=== PATIENT | female | born 1995 | race Caucasian/White ===

== ENCOUNTER 2018-01-03 19:14 | Inpatient (IN) | payer OTHER ==
[2018-01-03] MEDS ORDERED: DEXTROSE 5%-LACTATED RINGERS 500 ML IV SCH (20:20)
[2018-01-03 21:11] LABS: BASO % 0.5 % (0-2.0); EOS % 0.1 % (0-4.5); HEMATOCRIT 32.5 % (32.4-45.2); HEMOGLOBIN 10.9 GM/dL (10.7-15.3); LYMPH % 11.1 % (8-40); MCH 28.7 pg (25.7-33.7); MCHC 33.6 g/dl (32.0-36.0); MEAN CELL VOLUME 85.4 fl (80-96); MEAN PLT VOLUME 9.8 fl (7.5-11.1); MONO % 4.2 % (3.8-10.2); NEUT % 84.1 % (42.8-82.8); PLATELET COUNT 230 K/MM3 (134-434); RDW 13.7 % (11.6-15.6); WHITE BLOOD COUNT 13.4 K/mm3 (4.0-10.0)
[2018-01-03 21:19] LABS: URINE APPEARANCE SLCLOUDY; URINE BILIRUBIN NEGATIVE (<2.0 mg/dL); URINE COLOR YELLOW; URINE GLUCOSE (UA) NEGATIVE (NEGATIVE); URINE KETONE 2+ (NEGATIVE); URINE NITRITE NEGATIVE (NEGATIVE); URINE PROTEIN NEGATIVE (NEGATIVE); URINE UROBILINOGEN NEGATIVE mg/dL (0.2-1.0)
[2018-01-03] MEDS ORDERED: DEXTROSE 5%-LACTATED RINGERS 1,000 ML IV SCH (21:20)
[2018-01-03 21:21] LABS: URINE LEUK ESTERASE 1+ (NEGATIVE)
[2018-01-03 21:23] LABS: EPI CELLS FEW /HPF (FEW); URINE MUCUS RARE
[2018-01-03 21:33] LABS: INR 0.94 (0.83-1.09); PROTHROMBIN TIME (PATIENT) 10.6 SEC (9.7-13.0)
[2018-01-03 21:38] LABS: ANION GAP 13 (8-16); BLOOD UREA NITROGEN 3 mg/dL (7-18); CALCIUM 8.6 mg/dL (8.5-10.1); CHLORIDE 103 mmol/L (98-107); CO2 23 mmol/L (21-32); CREATININE 0.4 mg/dL (0.55-1.02); GLUCOSE,RANDOM 67 mg/dL (74-106); POTASSIUM 3.9 mmol/L (3.5-5.1); SODIUM 139 mmol/L (136-145)
[2018-01-03] MEDS: DEXTROSE 5%-LACTATED RINGERS 1,000 ML IV SCH (22:45)
[2018-01-03] MEDS ORDERED: AMPICILLIN - 2 GM in SODIUM CHLORIDE 100 ML IVPB ONE (22:45)
[2018-01-03] MEDS ORDERED: AMPICILLIN SODIUM 2 GM VIAL ONE (22:49)
[2018-01-03 23:43] VITALS: BMI 26.9
[2018-01-03] MEDS ORDERED: PROMETHAZINE HCL 25 MG/1 ML VIAL ONE (23:46)
[2018-01-03] MEDS ORDERED: BUTORPHANOL TARTRATE 1 MG/ML VIAL ONE ×2 (23:46)
[2018-01-04] MEDS ORDERED: PROMETHAZINE HCL 25 MG/1 ML VIAL IVPUSH ONE (01:00)
[2018-01-04] MEDS ORDERED: BUTORPHANOL TARTRATE 1 MG/ML VIAL IVPUSH ONE (01:00)
[2018-01-04] MEDS ORDERED: AMPICILLIN - 1 GM in SODIUM CHLORIDE 100 ML IVPB SCH ×2 (02:45→09:00)
[2018-01-04] MEDS ORDERED: AMPICILLIN SODIUM 1 GM VIAL ONE (03:13)
[2018-01-04] MEDS ORDERED: FENTANYL/BUPIVACAINE/NS/PF - PCEA - 50 ML DISP.SYRIN EP ONE (04:10)
[2018-01-04] MEDS ORDERED: NALOXONE HCL 0.4 MG/ML VIAL IVPUSH PRN (04:16)
[2018-01-04] MEDS ORDERED: LIDO 2%/EPI 1:200000 PRESRVFRE (20 ML SDVIAL) ONE ×3 (04:19→07:48)
[2018-01-04] MEDS: FENTANYL/BUPIVACAINE/NS/PF - PCEA - 50 ML DISP.SYRIN EP SCH (04:35)
[2018-01-04] MEDS ORDERED: ceFAZolin SODIUM 1 GM VIAL ONE ×3 (08:04→23:55)
[2018-01-04] MEDS ORDERED: SODIUM CHLORIDE 0.9% P/F 10 ML VIAL IJ ONE (08:04)
[2018-01-04] MEDS ORDERED: morphine SULFATE/Preservative Free 0.5 MG/ML (1cc Syringe) ONE ×4 (08:08)
[2018-01-04] MEDS ORDERED: KETOROLAC TROMETHAMINE 30 MG/1 ML VIAL ONE (08:11)
[2018-01-04] MEDS ORDERED: OXYTOCIN 20 UNITS in 0.9% NS 20 UNIT/1,000 ML INFUS.BAG IV ONE (08:28)
[2018-01-04] MEDS ORDERED: GENTAMICIN SO4 80 MG/2 ML VIAL ONE (08:28)
--- NOTE | 2018-01-04 08:30 | SURG ---
Surgery Deicer Repairer Pneumatic Note Deicer Repairer Pneumatic: Annetta Muñoz PA-C Date of Service: 01/04/18 Diagnosis: Failure to progress. Tachycardia. Fever. Nonreassuring tracing Procedure: Primary Low Transverse Section I was present for the entirety of the operative procedure. For further detail, please refer to operative report. Visit type - Case Type Case Type: ED Admission - Emergency Emergency Visit: Yes ED Registration Date: 01/03/18 Care time: The patient presented to the Emergency Department on the above date and was hospitalized for further evaluation of their emergent condition. - New patient This patient is new to me today: Yes Date on this admission: 01/04/18
[2018-01-04] MEDS ORDERED: CITRIC ACID/SODIUM CITRATE 30 ML UNIT-DOSE CUP PO ONE (08:46)
[2018-01-04] MEDS ORDERED: METHYLERGONOVINE MALEATE 0.2 MG/1 ML AMP IM PRN (08:47)
--- NOTE | 2018-01-04 08:54 | HP ---
Past Medical History - Admission Chief Complaint: Fever. labor History of Present Illness: 22 yo EDC 01/19 18 EGA 37.6 week with c/o of fever and labor History Source: Patient - Past Medical History ...: 1 ...Para: 0 ...Term: 0 ...: 0 ...Spon : 0 ...Induced : 0 ...Multiple Gestation: 0 ...LMP: 04/08/17 ... Weeks Gestation by Dates: 38.4 ...EDC by Dates: 01/13/18 ...EDC by Sono: 01/19/18 - Past Surgical History Past Surgical History: Yes: None Hx Myomectomy: No Hx Transabdominal Cerclage: No - Smoking History Smoking history: Never smoked Have you smoked in the past 12 months: No Aproximately how many cigarettes per day: 0 - Alcohol/Substance Use Hx Alcohol Use: No History of Substance Use: reports: None - Social History Usual Living Arrangement: Yes: With Spouse History of Recent Travel: No Home Medications - Allergies Allergies/Adverse Reactions: Allergies Allergy/AdvReac Type Severity Reaction Status Date / Time No Known Allergies Allergy Verified 01/22/12 12:37 - Home Medications Home Medications: Ambulatory Orders Mupirocin Cream [Bactroban] 1 applic TP BID #1 tube 01/22/12 No Home Medications 0 dose .ROUTE UTDICT 01/22/12 Sulfamethoxazole/Trimethoprim [Bactrim *Ds*] 1 tab PO BID #20 tablet 01/22/12 Review of Systems - Review of Systems Constitutional: reports: Fever Eyes: reports: No Symptoms HENT: reports: No Symptoms Neck: reports: No Symptoms Cardiovascular: reports: No Symptoms Respiratory: reports: No Symptoms Gastrointestinal: reports: No Symptoms Genitourinary: reports: No Symptoms Breasts: reports: No Symptoms Reported Musculoskeletal: reports: No Symptoms Integumentary: reports: No Symptoms Neurological: reports: No Symptoms Endocrine: reports: No Symptoms Hematology/Lymphatic: reports: No Symptoms Psychiatric: reports: No Symptoms Physical Exam - Maternity Vital Signs: Vital Signs Temperature 99.9 F H 01/04/18 06:45 Pulse Rate 101 H 01/04/18 06:45 Respiratory Rate 20 01/04/18 06:45 Blood Pressure 110/62 01/04/18 06:45 O2 Sat by Pulse Oximetry (%) 96 01/04/18 06:45 Constitutional: Yes: Well Nourished, Anxious Neck: Yes: WNL Cardiovascular: Yes: WNL, Tachycardia Lungs: Clear to auscultation Breast(s): Yes: WNL - Abdominal Exam/OB Fundal Height: 40 Number of Fetuses: Single Presentation: Vertex Contractions: Yes Category: II Decelerations: Late - Vaginal Exam/OB Dilatation (cm): 4-5 cm Effacement (%): 90 Presentation: Vertex/Position Station: +1 - Physical Exam Musculoskeletal: Yes: WNL Extremities: Yes: WNL Edema: No Integumentary: Yes: WNL Psychiatric: Yes: WNL, Alert, Oriented - Labs Lab Results: CBC, BMP 01/03/18 20:30 01/03/18 20:30 Problem List - Problems (1) tachycardia during labor Code(s): KQO9377 - (2) Non-reassuring electronic monitoring tracing Code(s): O76 - ABNLT IN HEART RATE AND RHYTHM COMP LABOR AND DELIVERY (3) Failure to progress in labor Code(s): O62.2 - OTHER UTERINE INERTIA Assessment/Plan IUP at 37 week tachycardia failure to progress fever non reassurring tracing due to late decels plan section notify anesthesia notify neonatology parents and patient agree
[2018-01-04] MEDS ORDERED: OXYTOCIN 20 UNITS in 0.9% NS 20 UNIT/1,000 ML INFUS.BAG IV SCH (09:00)
[2018-01-04] MEDS ORDERED: TUBERCULIN PPD 5 TU/0.1ML SYRINGE (IN PATIENT USE ONLY) ID ONE (09:00)
--- NOTE | 2018-01-04 09:01 | OP ---
Operative Note - Note: Operative Date: 01/04/18 Pre-Operative Diagnosis: Failure to progress. Tachycardia. Fever. Nonreassuring tracing Operation: Primary Low Transverse Section Findings: Live infant delivered in OP position Post-Operative Diagnosis: Same as Pre-op Surgeon: Radha Dubon Supervisor [employer] Reservations: Annetta Muñoz Anesthesia: Spinal Estimated Blood Loss (mls): 500 Operative Report Dictated: Yes
[2018-01-04 09:09] LABS: VENOUS PC02 50.4 mmHg (38-52); VENOUS PH 7.34 (7.32-7.42); VENOUS PO2 22.6 mmHg (28-48)
[2018-01-04 09:10] LABS: ARTERIAL BLOOD GAS PCO2 55.3 mmHg (35-45); ARTERIAL BLOOD GAS pH 7.31 (7.35-7.45)
[2018-01-04 09:11] LABS: ARTERIAL BLD GAS O2 SATURATION 40.4 % (90-98.9); ARTERIAL BLOOD GAS BASE EXCESS -0.3 meq/l (-2-2)
[2018-01-04] MEDS ORDERED: ONDANSETRON 4 MG/2 ML VIAL IVPUSH PRN (09:12)
[2018-01-04 09:14] LABS: ARTERIAL BLOOD GAS PO2 21.8 mmHg (80-100)
[2018-01-04] MEDS: FERROUS SO4 325 MG TABLET (FP) PO SCH ×2 (10:06→21:23)
[2018-01-04] MEDS: PRENATAL VITAMINS W/ FOLIC ACID TABLET (FP) PO SCH (10:07)
[2018-01-04] MEDS: IBUPROFEN 800 MG/8 ML IJ IVPB PRN ×2 (10:16→18:37)
--- NOTE | 2018-01-04 10:51 | OP ---
DATE OF OPERATION: 01/04/2018 PREOPERATIVE DIAGNOSES: Failure to progress, tachycardia, fever, and nonreassuring tracing. OPERATION: Primary low-transverse section. PREOPERATIVE DIAGNOSIS: Live male infant in occiput posterior position. SURGEON: Shawn Dubon MD SHIPPING AND RECEIVING SUPERVISOR: Annetta Muñoz. ANESTHESIOLOGIST: Ashutosh Baldwin MD ANESTHESIA: Spinal. ESTIMATED BLOOD LOSS: 500 mL. PROCEDURE: The patient was taken to the operating room, placed in supine position, prepped and draped in usual sterile fashion. A timeout was performed in accordance with hospital regulation. A scalpel was then used to make a low transverse uterine incision. Cautery was then used to go through layers of abdominal wall to the level of the fascia. Fascia was cut in the midline and cautery was then used to open the fascia in smiling fashion. Kochers were then used to bluntly and sharply dissect the rectus muscle. The fascia was split in the midline. Peritoneal cavity was then entered and carried upward and downward. Bladder retractor was then placed. Vesicouterine reflection was then entered, and bladder was bluntly dissected out of the operative field. A scalpel was then used to make a low transverse uterine incision. The incision was carried upward using the bandage scissors. A live male infant was delivered in OP position. Nose and mouth suction performed. Shoulders were delivered without difficulty. Cord was clamped and cut. DeLee cord clamping was done, cord pH obtained, and was handed to electric powerline examiner. Cord pH obtained and cord blood sampling was done. Placenta was manually extracted from the uterus. The uterus was exteriorized and cleaned with clean lap pads. Uterine incision was then closed using 0 Biosyn suture, first layer continuous interlocking, second layer imbricating the first layer. Tubes and ovaries were noted to be normal. Uterus interiorized. Abdominal cavity cleaned with clean lap pad. Peritoneum closed using 0 Biosyn suture. Muscles approximated in midline using 0 Biosyn suture. Fascia was then closed using 0 Vicryl suture in 2 parts. Subcutaneous was closed using 0 Biosyn sutures. Skin was then closed using 3-0 Vicryl in subcuticular fashion. Wound was washed and dressed. Patient tolerated the procedure well. Estimated blood loss was 500 mL. SHAWN DUBON M.D. ISAIAH/[id number]
[2018-01-04] MEDS ORDERED: DEXTROSE 5%-WATER - 50 ML IVPB ONE ×2 (16:54→23:55)
[2018-01-04] MEDS: CEFAZOLIN 1 GM in DEXTROSE 5%-WATER - 50 ML IVPB SCH (16:58)
[2018-01-04] MEDS: DEXTROSE 5%-LACTATED RINGERS 1,000 ML IV SCH (22:45)
[2018-01-05] MEDS: CEFAZOLIN 1 GM in DEXTROSE 5%-WATER - 50 ML IVPB SCH ×2 (00:08→07:41)
[2018-01-05] MEDS: IBUPROFEN 800 MG/8 ML IJ IVPB PRN (01:07)
--- NOTE | 2018-01-05 07:09 | PN ---
Progress Note (SOAP) - Subjective Chief Complaint: Pt doing well no fever - Current Medications Current Medications: Active Medications Acetaminophen (Tylenol -) 650 mg PO Q4H PRN PRN Reason: FEVER Bisacodyl (Dulcolax Suppository -) 10 mg RC PRN PRN PRN Reason: CONSTIPATION Diphenhydramine HCl (Benadryl Injection -) 25 mg IVPUSH Q4H PRN PRN Reason: Pruritis Fentanyl/Bupivacaine/Sodium Chlor (Bupivicaine 0.125%/Fentanyl 2mcg/Ml Pcea) 50 ml EP ASDIR [facility]; Protocol Last Admin: 01/04/18 04:35 Dose: 50 ml Ferrous Sulfate (Feosol -) 325 mg PO BID [facility] Last Admin: 01/04/18 21:23 Dose: Not Given Dextrose/Lactated Ringer's (D5-Lr -) 1,000 mls @ 125 mls/hr IV ASDIR [facility] Last Admin: 01/04/18 22:45 Dose: Not Given Cefazolin Sodium 1 gm/ (Dextrose) 50 mls @ 100 mls/hr IVPB Q8H [facility] Stop: 01/05/18 15:59 Last Admin: 01/05/18 00:08 Dose: 100 mls/hr Oxytocin/Sodium Chloride (Normal Saline+20 Units Oxytocin -) 20 unit in 1,000 mls @ 125 mls/hr IV ASDIR [facility] Last Admin: 01/04/18 09:00 Dose: 125 mls/hr Ibuprofen (Caldolor Injection -) 800 mg IVPB Q8H PRN PRN Reason: FEVER Last Admin: 01/05/18 01:07 Dose: 800 mg Ibuprofen (Motrin -) 600 mg PO Q4H PRN PRN Reason: PAIN LEVEL 1 - 3 Methylergonovine Maleate (Methergine Injection -) 0.2 mg IM Q4H PRN PRN Reason: Excessive Bleeding (L&D) Naloxone HCl (Narcan -) 0.4 mg IVPUSH PRN PRN PRN Reason: Sedation Ondansetron HCl (Zofran Injection) 4 mg IVPUSH Q4H PRN PRN Reason: NAUSEA Multivit/Folic Acid/Iron ( Vitamins (Sjr) -) 1 tab PO DAILY [facility] Last Admin: 01/04/18 10:07 Dose: Not Given Simethicone (Mylicon -) 80 mg PO Q4H PRN PRN Reason: GAS - Objective Vital Signs: Vital Signs Temperature 97.8 F 01/05/18 06:00 Pulse Rate 89 01/05/18 06:00 Respiratory Rate 18 01/05/18 06:00 Blood Pressure 100/58 01/05/18 06:00 O2 Sat by Pulse Oximetry (%) 100 01/04/18 09:30 Constitutional: Yes: Well Nourished, No Distress Neck: Yes: WNL Cardiovascular: Yes: WNL, Regular Rate and Rhythm Gastrointestinal: Yes: WNL, Normal Bowel Sounds, Soft ....Post : Yes: Uterus firm, Uterus non-tender Breast(s): Yes: WNL Musculoskeletal: Yes: WNL Extremities: Yes: WNL Edema: No Wound/Incision: Yes: Steri Strips, Open to air, Dressing Removed Neurological: Yes: WNL, Alert, Oriented Labs Lab Results: CBC, BMP 01/03/18 20:30 01/03/18 20:30 Problem List - Problems (1) tachycardia during labor Code(s): JAQ9684 - (2) Non-reassuring electronic monitoring tracing Code(s): O76 - ABNLT IN HEART RATE AND RHYTHM COMP LABOR AND DELIVERY (3) Failure to progress in labor Code(s): O62.2 - OTHER UTERINE INERTIA Assessment/Plan SP CS Afebrile PoD1 paln OOB AMbulate
[2018-01-05] MEDS ORDERED: ceFAZolin SODIUM 1 GM VIAL ONE (07:33)
[2018-01-05] MEDS ORDERED: DEXTROSE 5%-WATER - 50 ML IVPB ONE (07:33)
[2018-01-05] MEDS ORDERED: BISACODYL 10 MG SUPP.RECT RC PRN (08:47)
[2018-01-05] MEDS: SIMETHICONE 80 MG TAB.CHEW (FP) PO PRN ×3 (09:07→17:55)
[2018-01-05] MEDS: IBUPROFEN 600 MG TABLET (FP) PO PRN ×3 (09:07→17:55)
[2018-01-05] MEDS: ACETAMINOPHEN 325 MG TABLET (FP) PO PRN ×3 (09:08→17:55)
[2018-01-05 09:10] LABS: BASO % 0.2 % (0-2.0); EOS % 0.8 % (0-4.5); HEMATOCRIT 25.4 % (32.4-45.2); HEMOGLOBIN 8.5 GM/dL (10.7-15.3); LYMPH % 13.4 % (8-40); MCH 28.6 pg (25.7-33.7); MCHC 33.4 g/dl (32.0-36.0); MEAN CELL VOLUME 85.8 fl (80-96); MEAN PLT VOLUME 8.2 fl (7.5-11.1); MONO % 4.7 % (3.8-10.2); NEUT % 80.9 % (42.8-82.8); PLATELET COUNT 144 K/MM3 (134-434); RBC 2.97 M/mm3 (3.60-5.2); WHITE BLOOD COUNT 9.4 K/mm3 (4.0-10.0)
--- NOTE | 2018-01-05 09:10 | PN ---
Progress Note (short form) - Note Progress Note: ANESTHESIOLOGY POST-OP CHECK 22F s/p under spinal anesthesia, POD #1. No acute complaints. Pain 6/ 10 and tolerable, Denies N/V, headache Vital Signs Temperature 97.8 F 01/05/18 06:00 Pulse Rate 89 01/05/18 06:00 Respiratory Rate 18 01/05/18 06:00 Blood Pressure 100/58 01/05/18 06:00 O2 Sat by Pulse Oximetry (%) 100 01/04/18 09:30 Active Medications Acetaminophen (Tylenol -) 650 mg PO Q4H PRN PRN Reason: FEVER Last Admin: 01/05/18 09:08 Dose: 650 mg Bisacodyl (Dulcolax Suppository -) 10 mg RC PRN PRN PRN Reason: CONSTIPATION Diphenhydramine HCl (Benadryl Injection -) 25 mg IVPUSH Q4H PRN PRN Reason: Pruritis Fentanyl/Bupivacaine/Sodium Chlor (Bupivicaine 0.125%/Fentanyl 2mcg/Ml Pcea) 50 ml EP ASDIR [facility]; Protocol Last Admin: 01/04/18 04:35 Dose: 50 ml Ferrous Sulfate (Feosol -) 325 mg PO BID [facility] Last Admin: 01/04/18 21:23 Dose: Not Given Dextrose/Lactated Ringer's (D5-Lr -) 1,000 mls @ 125 mls/hr IV ASDIR [facility] Last Admin: 01/04/18 22:45 Dose: Not Given Cefazolin Sodium 1 gm/ (Dextrose) 50 mls @ 100 mls/hr IVPB Q8H [facility] Stop: 01/05/18 15:59 Last Admin: 01/05/18 07:41 Dose: 100 mls/hr Oxytocin/Sodium Chloride (Normal Saline+20 Units Oxytocin -) 20 unit in 1,000 mls @ 125 mls/hr IV ASDIR [facility] Last Admin: 01/04/18 09:00 Dose: 125 mls/hr Ibuprofen (Caldolor Injection -) 800 mg IVPB Q8H PRN PRN Reason: FEVER Last Admin: 01/05/18 01:07 Dose: 800 mg Ibuprofen (Motrin -) 600 mg PO Q4H PRN PRN Reason: PAIN LEVEL 1 - 3 Last Admin: 01/05/18 09:07 Dose: 600 mg Methylergonovine Maleate (Methergine Injection -) 0.2 mg IM Q4H PRN PRN Reason: Excessive Bleeding (L&D) Naloxone HCl (Narcan -) 0.4 mg IVPUSH PRN PRN PRN Reason: Sedation Ondansetron HCl (Zofran Injection) 4 mg IVPUSH Q4H PRN PRN Reason: NAUSEA Multivit/Folic Acid/Iron ( Vitamins (Sjr) -) 1 tab PO DAILY [facility] Last Admin: 01/04/18 10:07 Dose: Not Given Simethicone (Mylicon -) 80 mg PO Q4H PRN PRN Reason: GAS Last Admin: 01/05/18 09:07 Dose: 80 mg Gen: Awake, alert No apparent anesthesia complications. Pain well controlled. Continue management as per primary team.
[2018-01-05] MEDS: PRENATAL VITAMINS W/ FOLIC ACID TABLET (FP) PO SCH (10:00)
[2018-01-05] MEDS: FERROUS SO4 325 MG TABLET (FP) PO SCH ×2 (10:00→21:28)
[2018-01-05] MEDS: FENTANYL/BUPIVACAINE/NS/PF - PCEA - 50 ML DISP.SYRIN EP SCH (11:14)
[2018-01-06] MEDS: ACETAMINOPHEN 325 MG TABLET (FP) PO PRN ×4 (00:34→22:26)
[2018-01-06] MEDS: SIMETHICONE 80 MG TAB.CHEW (FP) PO PRN ×4 (00:34→22:25)
[2018-01-06] MEDS: IBUPROFEN 600 MG TABLET (FP) PO PRN ×4 (00:34→22:25)
[2018-01-06] MEDS: FERROUS SO4 325 MG TABLET (FP) PO SCH ×2 (09:39→21:24)
[2018-01-06] MEDS: PRENATAL VITAMINS W/ FOLIC ACID TABLET (FP) PO SCH (09:39)
--- NOTE | 2018-01-06 16:17 | PN ---
Post Progress Note - Subjective Subjective: Pt with some incision pain, otherwise feeling well. Type of Delivery: Primary C/S Vital Signs: Vital Signs Temperature 98.3 F 01/06/18 07:30 Pulse Rate 86 01/06/18 07:30 Respiratory Rate 18 01/06/18 07:30 Blood Pressure 127/69 01/06/18 07:30 O2 Sat by Pulse Oximetry (%) 100 01/04/18 09:30 Breast Exam: Yes: Soft Uterus: Yes: Fundus Firm Incision: Yes: Sutures intact Abdomen/GI: Yes: Abdomen soft, Tolerating PO Lochia: Yes: Rubra Lochia, amount: Small Extremities: Yes: Calves non-tender. No: Edema Perineum: Yes: Intact Activity: Ambulating - Labs Labs: CBC WBC 9.4 K/mm3 (4.0-10.0) 01/05/18 08:00 RBC 2.97 M/mm3 (3.60-5.2) L 01/05/18 08:00 Hgb 8.5 GM/dL (10.7-15.3) L 01/05/18 08:00 Hct 25.4 % (32.4-45.2) L D 01/05/18 08:00 MCV 85.8 fl (80-96) 01/05/18 08:00 MCH 28.6 pg (25.7-33.7) 01/05/18 08:00 MCHC 33.4 g/dl (32.0-36.0) 01/05/18 08:00 RDW 14.0 % (11.6-15.6) 01/05/18 08:00 Plt Count 144 K/MM3 (134-434) D 01/05/18 08:00 MPV 8.2 fl (7.5-11.1) D 01/05/18 08:00 Absolute Neuts (auto) 7.6 K/mm3 (1.5-8.0) 01/05/18 08:00 Neutrophils % 80.9 % (42.8-82.8) 01/05/18 08:00 Lymphocytes % 13.4 % (8-40) D 01/05/18 08:00 Monocytes % 4.7 % (3.8-10.2) 01/05/18 08:00 Eosinophils % 0.8 % (0-4.5) D 01/05/18 08:00 Basophils % 0.2 % (0-2.0) 01/05/18 08:00 Nucleated RBC % 0 % (0-0) 01/05/18 08:00 Problem List - Problems (1) delivery delivered Code(s): O82 - ENCOUNTER FOR DELIVERY WITHOUT INDICATION Assessment/Plan POD#2 from primary delivery AFVSS regular diet PO pain meds ambulate plan for discharge home in a.m.
--- NOTE | 2018-01-06 19:41 | DS ---
Physical Exam-RETAIL GIFT CARD MERCHANDISING Vital Signs: Vital Signs Temperature 98.3 F 01/06/18 07:30 Pulse Rate 86 01/06/18 07:30 Respiratory Rate 18 01/06/18 07:30 Blood Pressure 127/69 01/06/18 07:30 O2 Sat by Pulse Oximetry (%) 100 01/04/18 09:30 Labs: CBC, BMP 01/05/18 08:00 01/03/18 20:30 Delivery - Delivery Section: Primary, Low Flap Transverse Type of Anesthesia: Epidural Episiotomy/Laceration: None EBL (cc): 500 Delivery, Single - Stages of Labor Date 1st Stage Initiatied: 01/03/18 Time 1st Stage Initiated: 17:00 Date of Delivery: 01/04/18 Time of Delivery: 08:12 Time Placenta Delivered: 08:13 - Condition of Infant Quality Control Systems Manager/Operations Intelligence Superintendent Present: Yes Name: Thomas Cabrera Gender: Male Weight: 6 lb 7 oz Position: OP Total Hours ROM (Hrs/Mins): 2min - 1 Minute Total Score: 9 5 Minutes Total Score: 9 - [place] Feeding Plan Initial Plan: Exclusive throughout hospitalization Discharge Summary Reason For Visit: LABOR ADMIT Current Active Problems delivery delivered (Acute) Failure to progress in labor (Acute) tachycardia during labor (Acute) Non-reassuring electronic monitoring tracing (Acute) Procedures: Principal: Primary delivery Hospital Course: Pt admitted on 01/03/18 in labor, underwent expectant management of labor. IN morning of 01/04/18, pt became febrile and fetus had tachycardia at which point pt underwent a delivery. She had an uncomplicated post recovery and was discharged home on post op day 3. Condition: Good - Instructions Diet, Activity, Other Instructions: Physical activity Resume your normal everyday activity as tolerated no heavy lifting or exercise until seen by your surgeon. You may walk unlimited [place] of and climb stairs. You may resume driving the car when you feel safe and comfortable behind the wheel. No sexual activity as instructed. Wound care If you have a bandage, leave it on, and keep dry for 48-72 hours. After that time discard the outer bandage. If they are tapes on the skin under the out of bandage leave them in place. They will peel off in the next 7 to 10 days. Do Not Peel them off. You may shower the day after surgery. If there are tapes present on the skin, you may shower over them. Diet There are no dietary restrictions. Eat healthy, high-fiber foods. Drink 6 to 8 glasses of liquid each day. This will assist in keeping your bowels are regular. Pain management You may take Tylenol or acetaminophen or Ibuprofen (for example, Motrin, Advil etc.) from my pain prescription medication is ordered should be taken as prescribed for moderate to severe pain. Call MD for any of the following: Severe pain not relieved by medication Fever of 101 or higher Excessive bleeding or drainage on dressing Inability to urinate Disposition: HOME - Home Medications Comprehensive Discharge Medication List: Ambulatory Orders Mupirocin Cream [Bactroban] 1 applic TP BID #1 tube 01/22/12 No Home Medications 0 dose .ROUTE UTDICT 01/22/12 Sulfamethoxazole/Trimethoprim [Bactrim *Ds*] 1 tab PO BID #20 tablet 01/22/12 Ibuprofen [Motrin -] 600 mg PO QID PRN #28 tablet 01/06/18 Oxycodone HCl/Acetaminophen [Percocet 5-325 mg Tablet -] 1 tab PO Q4H #30 tablet MDD 6 01/06/18
[2018-01-06] MEDS ORDERED: SENNOSIDES/DOCUSATE COMBO (SENNA PLUS) TABLET (UD) PO PRN (22:04)
[2018-01-07] MEDS: IBUPROFEN 600 MG TABLET (FP) PO PRN (06:40)
[2018-01-07] MEDS: ACETAMINOPHEN 325 MG TABLET (FP) PO PRN (06:41)
[2018-01-07 08:04] LABS: BASO % 0.3 % (0-2.0); EOS % 3.7 % (0-4.5); HEMATOCRIT 25.5 % (32.4-45.2); HEMOGLOBIN 8.4 GM/dL (10.7-15.3); LYMPH % 18.9 % (8-40); MCH 28.2 pg (25.7-33.7); MCHC 32.9 g/dl (32.0-36.0); MEAN CELL VOLUME 85.6 fl (80-96); MONO % 4.4 % (3.8-10.2); NEUT % 72.7 % (42.8-82.8); PLATELET COUNT 195 K/MM3 (134-434); RBC 2.98 M/mm3 (3.60-5.2); RDW 13.4 % (11.6-15.6); WHITE BLOOD COUNT 7.4 K/mm3 (4.0-10.0)
[2018-01-07] MEDS: PRENATAL VITAMINS W/ FOLIC ACID TABLET (FP) PO SCH (09:54)
[2018-01-07] MEDS: FERROUS SO4 325 MG TABLET (FP) PO SCH (09:54)
[2018-01-07 12:22] VITALS: BP 102/61; PULSE 90; TEMP 98.8
--- NOTE | 2018-01-10 08:47 | DS ---
Physical Exam-DISTRIBUTION CENTER MANAGER Vital Signs: Vital Signs Temperature 98.8 F 01/07/18 10:00 Pulse Rate 90 01/07/18 10:00 Respiratory Rate 20 01/07/18 10:00 Blood Pressure 102/61 01/07/18 10:00 O2 Sat by Pulse Oximetry (%) 100 01/04/18 09:30 Constitutional: Yes: Well Nourished, No Distress Respiratory: Yes: WNL, Regular, CTA Bilaterally Gastrointestinal: Yes: WNL ....Post : Yes: Uterus firm, Uterus non-tender Breast(s): Yes: WNL Musculoskeletal: Yes: WNL Extremities: Yes: WNL Wound/Incision: Yes: Steri Strips, Open to air Labs: CBC, BMP 01/07/18 07:39 01/03/18 20:30 Delivery - Delivery Section: Primary, Low Flap Transverse Type of Anesthesia: Epidural Episiotomy/Laceration: None EBL (cc): 500 Delivery, Single - Stages of Labor Date 1st Stage Initiatied: 01/03/18 Time 1st Stage Initiated: 17:00 Date of Delivery: 01/04/18 Time of Delivery: 08:12 Time Placenta Delivered: 08:13 - Condition of Infant Director Of Corporate Responsibility/Ware Tester Present: Yes Name: Thomas Cabrera Gender: Male Weight: 6 lb 7 oz Position: OP Total Hours ROM (Hrs/Mins): 2min - 1 Minute Total Score: 9 5 Minutes Total Score: 9 - [place] Feeding Plan Initial Plan: Exclusive throughout hospitalization Discharge Summary Reason For Visit: LABOR ADMIT Condition: Good - Instructions Diet, Activity, Other Instructions: Physical activity Resume your normal everyday activity as tolerated no heavy lifting or exercise until seen by your surgeon. You may walk unlimited [place] of and climb stairs. You may resume driving the car when you feel safe and comfortable behind the wheel. No sexual activity as instructed. Wound care If you have a bandage, leave it on, and keep dry for 48-72 hours. After that time discard the outer bandage. If they are tapes on the skin under the out of bandage leave them in place. They will peel off in the next 7 to 10 days. Do Not Peel them off. You may shower the day after surgery. If there are tapes present on the skin, you may shower over them. Diet There are no dietary restrictions. Eat healthy, high-fiber foods. Drink 6 to 8 glasses of liquid each day. This will assist in keeping your bowels are regular. Pain management You may take Tylenol or acetaminophen or Ibuprofen (for example, Motrin, Advil etc.) from my pain prescription medication is ordered should be taken as prescribed for moderate to severe pain. Call MD for any of the following: Severe pain not relieved by medication Fever of 101 or higher Excessive bleeding or drainage on dressing Inability to urinate Disposition: HOME - Home Medications Comprehensive Discharge Medication List: Ambulatory Orders Mupirocin Cream [Bactroban] 1 applic TP BID #1 tube 01/22/12 No Home Medications 0 dose .ROUTE UTDICT 01/22/12 Sulfamethoxazole/Trimethoprim [Bactrim *Ds*] 1 tab PO BID #20 tablet 01/22/12 Ibuprofen [Motrin -] 600 mg PO QID PRN #28 tablet 01/06/18 Oxycodone HCl/Acetaminophen [Percocet 5-325 mg Tablet -] 1 tab PO Q4H #30 tablet MDD 6 01/06/18
--- NOTE | 2018-01-11 18:02 | PATH ---
Surgical Pathology Report Patient Name: MARY MENDEZ Med. Rec. #: [id number] /Age/Gender: 1995 (Age: 22) / F Account: [id number] Location: [facility] OBS/K 8 SCHOOL PRINCIPAL Taken: 01/04/2018 Received: 01/05/2018 Reported: 01/11/2018 Physicians: Radha Dubon M.D. Specimen(s) Received PLACENTA Clinical History , 37.6 weeks, maternal temp and tachycardia, tachycardia Final Diagnosis PLACENTA: THIRD TRIMESTER PLACENTA SHOWING FOCAL SUBCHORIONIC ACUTE INFLAMMATION, MILD CHRONIC DECIDUITIS, AND ONE FOCUS OF INFARCTION (1 CM IN GREATEST DIMENSION). TRIVASCULAR CORD. MEMBRANES WITH NO DIAGNOSTIC ABNORMALITIES. Electronically Signed Tavo Story M.D. Gross Description The specimen is received fresh labeled placenta and is a 355 gram, 14.5 x 14.0 x 2.6 cm. placenta with attached membranes and umbilical cord. The attached membranes are minor, translucent with focal opacities and insert marginally. The umbilical cord measures 12.5 cm. in length and averages 1 cm. in diameter. The cord inserts eccentrically, 4 cm. to the nearest margin. No true knots or strictures are identified. Cut surface of the umbilical cord reveals 3 vessels. The surface is gong-blue with minimal fibrin deposition and appropriate caliber vessels. The maternal surface is red-brown with focal defects. Sectioning reveals a 1.0 cm in greatest dimension minor intraparenchymal lesion. The remaining placental parenchyma is red-brown and spongy. Manager Transfusion sections are submitted in 4 cassettes as follows: 1-membrane roll and umbilical cord; 2-lesion; 3-4-full thickness sections of placenta. 01/07/2018 [facility]01/07/2018
== END 2018-01-07 13:30 | disposition home or self-care (01) | DRG 540 ==
LOC: JDEL 19:14 → JLDR 22:45 → J3W 01-04 10:43
PROVIDERS: ADMIT Obstetrics & Gynecology; ATTEND Obstetrics & Gynecology
PROC: 10D00Z1 Extraction of Products of Conception, Low, Open Approach (ICD-10-PCS; principal; 2018-01-04)
DX: O76 Abnormality in fetal heart rate and rhythm complicating labor and delivery (principal); O75.2 Pyrexia during labor, not elsewhere classified; O62.1 Secondary uterine inertia; Z3A.37 37 weeks gestation of pregnancy; Z37.0 Single live birth
CPT/HCPCS: 36415; 36600; 80048; 81003; 81015; 82803; 85025; 85610; 86593; 86850; 86900; 86901; 87086; 88307-TC

== ENCOUNTER 2018-01-21 03:13 | Emergency (ER) | payer OTHER ==
[2018-01-21 03:24] VITALS: BP 113/75; PULSE 115; BMI 24.2
[2018-01-21] MEDS ORDERED: IBUPROFEN 600 MG TABLET (FP) PO ONE ×2 (03:31→03:40)
--- NOTE | 2018-01-21 03:43 | PDOC ---
History of Present Illness - General Chief Complaint: Respiratory Stated Complaint: FEVER Time Seen by Provider: 01/21/18 03:39 History Source: Patient Exam Limitations: No Limitations - History of Present Illness Initial Comments: 01/21/18 03:53 This is a 22-year-old female who comes in complaining of a fever. Patient states she has had a fever 1 day. Patient took something for her fever approximately 12 hours ago. Patient said that it helped but now the fever is back. Patient denies any cough, congestion, chest pain, shortness of breath. Patient denies any urinary symptoms of frequency or dysuria. Patient denies any back or flank pain. Patient is otherwise healthy takes no medications. However it is noted the patient does have a mild hoarse voice but she does deny sore throat. PAST MEDICAL HISTORY: no significant history PAST SURGICAL HISTORY: no significant history FAMILY HISTORY: no pertinant history SOCIAL HISTORY: Pt lives with family and is employed. MEDICATIONS: reviewed ALLERGIES: As per nursing notes ROS General: No fevers or chills, no weakness, no weight loss HEENT: No change in vision. No sore throat,. No ear pain CardioVascular: No chest pain or shortness of breath Respiratory:No cough, or wheezing. Gastrointestinal: no nausea, vomiting, diarrhea or constipation, No rectal bleeding Genitourinary: No dysuria, hematuria, or frequency Musculoskeletal: . No joint pain or swelling Neurologic: No headache, vertigo, dizziness or loss of consciousness Psychiatric: nor depression Skin: No rashes or easy bruising Endocrine: no increased thirst or abnormal weight change Allergic: no skin or latex allergy All other systems reviewed and normal Exam: General: Well-nourished well-developed individual, no acute distress HEENT: Throat: Normal, tonsils normal, no erythema or exudate Neck: Supple, no meningeal signs, no lymphadenopathy Eyes::Pupils equal reactive and round, extraocular motion intact Chest: Nontender to palpation Cardiac: S1-S2 normal, regular rate and rhythm, no murmurs rubs or gallops Respiratory: Lungs clear to auscultation bilateral Abdomen: Soft, nondistended, normal bowel sounds, there is no tenderness on palpation diffusely Extremities: Warm, dry, no cyanosis, clubbing, or edema Skin: No rashes Neuro: Alert and oriented x3, CN II - XII intact, nonfocal exam with normal strength, normal sensation, normal reflexes, normal gait, Psych: Normal mood and affect Assessment and plan: This is a 22-year-old female with a fever times one day. Patient otherwise has normal exam. Patient given Motrin and reassured that it is most likely viral in etiology but told to follow up with her primary care doctor in 3-4 days if she still has a fever without any other symptoms. Past History - Past Medical History Allergies/Adverse Reactions: Allergies Allergy/AdvReac Type Severity Reaction Status Date / Time No Known Allergies Allergy Verified 01/22/12 12:37 Home Medications: Ambulatory Orders No Home Medications 0 dose .ROUTE UTDICT 01/22/12 Anemia: Yes Asthma: No Cancer: No Cardiac Disorders: No COPD: No Diabetes: No HTN: No Seizures: No Thyroid Disease: No - Suicide/Smoking/Psychosocial Hx Smoking Status: No Smoking History: Never smoked Have you smoked in the past 12 months: No Number of Cigarettes Smoked Daily: 0 Hx Alcohol Use: No Drug/Substance Use Hx: No Hx Substance Use Treatment: No *Physical Exam - Vital Signs Last Vital Signs Temp Pulse Resp BP Pulse Ox 102.6 F H 115 H 16 113/75 99 01/21/18 03:20 01/21/18 03:20 01/21/18 03:20 01/21/18 03:20 01/21/18 03:20 *DC/Admit/Observation/Transfer Diagnosis at time of Disposition: Fever Qualifiers: Fever type: unspecified Qualified Code(s): R50.9 - Fever, unspecified - Discharge Dispostion Disposition: HOME Condition at time of disposition: Stable Decision to Admit order: No - Referrals Referrals: Sangita Honeycutt MD [Primary Care Provider] - - Patient Instructions Additional Instructions: Alternate tylenol with motrin every 4 to 6 hours as needed. Follow up with your doctor if not better in 3 to 4 days. Return to the emergency department immediately with ANY new, persistent or worsening symptoms. Continue any medications as previously prescribed by your physician. You should follow up with your primary doctor as soon as possible regarding today's emergency department visit. . Please make sure your doctor reviews the results of your emergency evaluation. Thank you for coming to the Emergency Department today for your care. It was a pleasure to see you today. Please note that your evaluation is INCOMPLETE until you follow-up with your doctor. - Post Discharge Activity
[2018-01-21 03:58] VITALS: TEMP 101.9
== END 2018-01-21 04:00 | disposition home or self-care (01) ==
LOC: FER 03:13
DX: R50.9 Fever, unspecified (principal)
CPT/HCPCS: 99281-25